=== PATIENT | female | born 1995 | race Caucasian/White ===

== ENCOUNTER 2018-02-10 22:11 | Emergency (ER) | payer SELFPAY ==
--- NOTE | 2018-02-10 23:29 | ED ---
Skin Complaint - HPI Summary HPI Summary: Patient complains of anna to palmar surface of right hand after putting it on Hot stove. Denies loss of sensation or loss of function in right hand. - History of Current Complaint Chief Complaint: EDExtremityUpper Time Seen by Provider: 02/10/18 22:46 Stated Complaint: BURNED RT HAND Hx Obtained From: Patient Onset/Duration: Started Hours Ago Skin Exposure Onset/Duration: Hours Ago Timing: Constant Onset Severity: Mild Current Severity: Mild Pain Intensity: 3 Pain Scale Used: 0-10 Numeric Skin Location: Discrete Aggravating Symptom(s): Nothing Alleviating Symptom(s): Nothing Associated Signs & Symptoms: Abdominal Pain, Tenderness - Allergy/Home Medications Allergies/Adverse Reactions: Allergies Allergy/AdvReac Type Severity Reaction Status Date / Time No Known Allergies Allergy Verified 02/10/18 22:19 PMH/Surg Hx/FS Hx/Imm Hx Endocrine/Hematology History: Denies: Hx Anticoagulant Therapy Cardiovascular History: Denies: Hx Cardiac Arrest Respiratory History: Denies: Hx Lung Cancer Neurological History: Denies: Hx CVA Infectious Disease History: No Infectious Disease History: Denies: Traveled Outside the [place] in Last 30 Days - Social History Alcohol Use: Occasionally Substance Use Type: Reports: None Smoking Status (MU): Never Smoked Tobacco Review of Systems Constitutional: Negative Eyes: Negative ENT: Negative Cardiovascular: Negative Respiratory: Negative Gastrointestinal: Negative Genitourinary: Negative Musculoskeletal: Negative Skin: Other Neurological: Negative Psychological: Normal All Other Systems Reviewed And Are Negative: Yes Physical Exam - Summary Physical Exam Summary: Superficial anna to palmar surface of the second and fourth digits, base of thumb and lateral edge of palmar surface of right hand. No blistering. Sensation intact. Skin color returns after pressure. Triage Information Reviewed: Yes Vital Signs On Initial Exam: Initial Vitals Temp Pulse Resp BP Pulse Ox 98.3 F 78 16 130/80 100 02/10/18 22:19 02/10/18 22:19 02/10/18 22:19 02/10/18 22:19 02/10/18 22:19 Vital Signs Reviewed: Yes Appearance: Positive: Well-Appearing Skin: Positive: Warm Head/Face: Positive: Normal Head/Face Inspection Eyes: Positive: Normal Neck: Positive: Supple Respiratory/Lung Sounds: Positive: Clear to Auscultation Cardiovascular: Positive: Normal Abdomen Description: Positive: Nontender Musculoskeletal: Positive: Normal Neurological: Positive: Normal Psychiatric: Positive: Normal AVPU Assessment: Alert - Johan Coma Scale Best Eye Response: 4 - Spontaneous Best Motor Response: 6 - Obeys Commands Best Verbal Response: 5 - Oriented Coma Scale Total: 15 Diagnostics - Vital Signs Vital Signs Temp Pulse Resp BP Pulse Ox 02/10/18 22:19 98.3 F 78 16 130/80 100 - Laboratory Lab Statement: Any lab studies that have been ordered have been reviewed, and results considered in the medical decision making process. Course/Dx - Course Course Of Treatment: Patient complains of anna to palmar surface of right hand after putting it on Hot stove. Denies loss of sensation or loss of function in right hand. Superficial anna to palmar surface of the second and fourth digits , base of thumb and lateral edge of palmar surface of right hand. No blistering. Sensation intact. Skin color returns after pressure. Patient opted to go home and treat herself. Refused treatment here in the ED. Advised patient to apply antibiotic ointment, aloe lotion or otc burn cream, and to keep and protected well skin is healing. - Diagnoses Provider Diagnoses: First degree burn Discharge - Sign-Out/Discharge Documenting (check all that apply): Patient Departure - Discharge Plan Condition: Stable Disposition: HOME Patient Education Materials: Superficial Burn (ED) Referrals: No Primary Care Phys,NOPCP [Primary Care Provider] - Additional Instructions: Take ibuprofen for pain. Apply lotion to anna. Protect hands when working. Return to the ED for any new or worsening symptoms - Billing Disposition and Condition Condition: STABLE Disposition: Home
[2018-02-11 00:27] VITALS: BP 117/59
== END 2018-02-11 00:21 | disposition home or self-care (01) ==
LOC: ED 22:11
DX: T23.151A Burn of first degree of right palm, initial encounter (principal); X15.0XXA Contact with hot stove (kitchen), initial encounter; Y93.9 Activity, unspecified; Y92.9 Unspecified place or not applicable
CPT/HCPCS: 99282